=== PATIENT | female | born 1945 | race Two or more races ===

== ENCOUNTER 2020-08-06 15:49 | Emergency (ER) | payer MEDICARE ==
[~2020-08-06] VITALS: Ht 154.9 cm; Wt 58.5 kg
[2020-08-06 15:56] VITALS: BP 158/82
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
--- NOTE | 2020-08-06 16:13 | NUR ---
ED Nurse Note: Pt taken to CT.
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
[2020-08-06] MEDS ORDERED: LIDODERM700 M1 TOPIC (17:16)
[2020-08-06] MEDS ORDERED: TYLENOL EXTRA500 MG ORAL (17:16)
[2020-08-06 17:26] VITALS: BP 144/74
--- NOTE | 2020-08-06 17:26 | NUR ---
ER DISCHARGE NOTE: Patient is cleared to be discharged per ERMD, pt is aox4, on room air, with stable vital signs. pt was given dc and prescription instructions, pt was able to verbalize understanding, pt id band. pt is able to ambulate with steady gait. pt took all belongings.
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
== END 2020-08-06 17:27 | disposition home or self-care (01) ==
LOC: EDBD 15:49 → EMR 16:05
DX: S30.0XXA Contusion of lower back and pelvis, initial encounter (principal); Y04.2XXA Assault by strike against or bumped into by another person, initial encounter; Y92.9 Unspecified place or not applicable; I10 Essential (primary) hypertension; E11.9 Type 2 diabetes mellitus without complications; M51.36 Other intervertebral disc degeneration, lumbar region
CPT/HCPCS: 72128; 99284